=== PATIENT | female | born 1955 | race Caucasian/White ===

== ENCOUNTER 2023-10-17 19:17 | Emergency (ER) | payer OTHER, SELFPAY ==
[2023-10-17 20:05] LABS: % Basophils 0.4 % (0-2); % Eosinophils 2.5 % (0-6); % Immature Granulocytes 0.3 % (0-0.5); % Lymphocytes 25.7 % (20.5-51.1); % Monocytes 7.8 % (1.7-9.3); % Neutrophils 63.3 % (42.2-75.2); Absolute Eosinophils 0.3 10^3/uL (0-0.7); Absolute Lymphocytes 2.6 10^3/uL (1.2-3.4); Absolute Monocytes 0.8 10^3/uL (0.1-0.6); Absolute Neutrophils 6.5 10^3/uL (1.4-6.5); Hematocrit 43.8 % (37.0-47.0); Hemoglobin 14.6 g/dL (12.0-16.0); Mean Corp Hgb Conc. 33.3 g/dL (33.0-37.0); Mean Corpuscular Hgb 30.6 pg (27.0-31.0); Mean Corpuscular Volume 91.8 fL (81.0-99.0); Mean Platelet Volume 9.5 fL (7.4-10.4); Nucleated Red Blood Cells % 0 %; Platelet Count 257 10^3/uL (130-400); Red Blood Cell Count 4.77 10^6/uL (4.20-5.40); Red Cell Dist. Width 13.6 % (11.5-14.5); White Blood Cell Count 10.2 10^3/uL (4.8-10.8)
[2023-10-17 20:16] LABS: Lactic Acid 1.3 mmol/L (0.7-2.0)
[2023-10-17 20:19] LABS: Urine Albumin Negative (Neg - Trace); Urine Bilirubin Negative (Negative); Urine Character Clear (Clear); Urine Color Yellow; Urine Glucose Negative (Negative); Urine Ketone Negative (Negative); Urine Leukocyte Trace (Negative); Urine Nitrite Negative (Negative); Urine Occult Blood Negative (Negative); Urine Specific Gravity 1.015 (<1.030); Urine Urobilinogen Negative (Neg - 1+)
[2023-10-17 20:19] LABS: ALT (SGPT) 29 U/L (0-35); AST (SGOT) 32 U/L (14-36); Albumin 4.6 g/dl (3.5-5.0); Alkaline Phosphatase 133 U/L (38-126); Blood Urea Nitrogen 13 mg/dl (7-17); Calcium 10.8 mg/dl (8.4-10.2); Carbon Dioxide 28 mmol/L (22-30); Chloride 101 mmol/L (98-107); Glucose 95 mg/dl (70-99); Potassium 4.8 mmol/L (3.5-5.1); Sodium 138 mmol/L (135-145); Total Bilirubin 0.7 mg/dl (0.2-1.3); eGFR > 60.00
[2023-10-17 20:28] LABS: Troponin I < 0.012 ng/ml
[2023-10-17 20:29] LABS: Urine White Cell 16-20 /HPF (0-5)
[2023-10-17 20:30] LABS: Urine Red Blood Cell 0-2 /HPF (0-2)
--- NOTE | 2023-10-17 21:06 | ED.GENMED ---
History of Present Illness
General
Chief Complaint: Swelling
Source: patient and spouse
Exam Limitations: none
Time Seen by Provider: 10/17/23 20:35
Travel History
Have you had any contact with someone who has COVID-19?: No
Do you have any symptoms of coronavirus? Fever > 100 degrees, chills, cough, shortness of breath, sore throat, loss of taste or smell, muscle aches, or headache?: No
History of Present Illness
History of Present Illness:
This is a 68 year old female that comes in with c/o right lower leg swelling. states that the patient has a Neurologic problem that is worse then MS and her brain is just deteriorating. State that he noticed a couple days ago that her right
lower leg was swollen and slightly red. Patient Denies any injury. State that she has had chest pain on and off and some SOB. Denies any fever, chills, abd pain, nausea, vomiting, diarrhea, headache, dizziness, urinary burning.
Past History
Past History
ED Past Medical History: GERD, NIDDM and Other (Neurologic problem, Vertigo)
ED Past Surgical History: Orthopedic (ACL repair bilateral knee's)
Patient has exhibited threatening behavior?: No
Social History
Tobacco: Non-smoker
Alcohol: None
Personal:
Living: with family
Employment: Employed
Review of Systems
Review of Systems
All Other Systems: ROS reviewed and negative except as documented in HPI and ROS
Constitutional: Reports no symptoms; Denies fever or chills
EENT: Reports no symptoms
Respiratory: Reports trouble breathing
Cardiac: Reports chest pain
ABD/GI: Reports constipated; Denies abdominal pain, nausea, vomiting or diarrhea
: Reports no symptoms; Denies dysuria, frequency or urgency
Musculoskeletal: Reports edema (Right ankle and lower leg)
Skin: Reports no symptoms
Neurological: Reports no symptoms; Denies dizzy or headache
Psychiatric: Reports no symptoms
Phy Exam
General Physical Exam
General Presentation: no apparent distress
General age: appears stated age
General Skin: warm and dry
General Habitus: elderly and poor hygiene
General Mental: usual mental status
General Hydration: appears well hydrated
ENT Exam
ENT Exam: pharynx normal, neck supple and other (large amount of Cerumen Unable to See the TM)
Eye Exam
Eye Exam: EOMI
Cardiovascular Exam
Cardiovascular Exam: regular rate/rhythm and normal peripheral pulses
Pulmonary Exam
Pulmonary Exam: lungs clear, no respiratory distress, no rales, chest non tender, no crackles, no rhonchi, no wheezing and no cough
Gastrointestinal Exam
Gastrointestinal Exam: normal bowel sounds, non tender, soft, no organomegaly, no pulsatile mass, non distended and other (Obese)
Musculoskeletal Exam
Musculoskeletal Exam: full ROM and edema (of the right ankle and lower leg +2 pitting. )
Skin Exam
Skin Exam: normal color, warm/dry, no petechia and other (Slight redness of the right lower leg noted, Negative for increased warmth)
Psychiatric Exam
Psychiatric Exam: normal mood/affect
Scores
Heart Failure Risk
Heart Failure Risk Score: Not Applicable
Course
Orders/Labs/Results
Orders:
Orders
10/17/23 19:42
Electrocardiogram (*1) Stat
Reason for Study: Chest Pain
Cardiology Consult: Unknown
10/17/23 19:43
EKG- Treatment ONCE
10/17/23 19:58
Complete Blood Count/With Diff Urgent
Comprehensive Metabolic Panel Urgent
Lactic Acid Urgent
Troponin I Urgent
Blood Culture Urgent
MADY Source: Blood/Venous
Specimen Description:
Date Specimen was Collected: 10/17/23
Time Specimen was Collected: 19:43
10/17/23 20:12
Urinalysis Reflex To Culture Urgent
Date Specimen was Collected: 10/17/23
Time Specimen was Collected: 19:43
Urine Microscopic Reflex Cult Urgent
Urine Culture Urgent
MADY Source: U
Specimen Description:
Date Specimen was Collected: 10/17/23
Time Specimen was Collected: 19:43
10/17/23 21:06
Ankle, Right 3 view CR [CR Ankle - Right Min 3 Views *] Urgent
Comment:
Reason For Exam: Swelling
US Periph Venous LOWER Ext RT Urgent
Comment:
Reason For Exam: Swelling pain
10/17/23 21:08
CR Chest - 2 Views Urgent
Comment:
Reason For Exam: SOB
Abnormal Lab Results
10/17/23 10/17/23
19:58 20:12
Absolute Monos (auto) 0.8 H 10^3/uL
(0.1-0.6)
Calcium 10.8 H mg/dl
(8.4-10.2)
Alkaline Phosphatase 133 H U/L
(38-126)
Leukocyte Esterase Rfl Trace A
(Negative)
Urine WBC (Reflex) 16-20 A /HPF
(0-5)
10/17/23 19:58
10/17/23 19:58
calcium slightly elevated. Alk phos elevation. Urine questionable for infection. Troponin <0.012
Vital Signs
Initial and Last Documented VS:
Initial Vital Signs
Temp Pulse Resp Pulse Ox
99.1 F 82 20 98
10/17/23 19:32 10/17/23 19:32 10/17/23 19:32 10/17/23 19:32
Last Documented Vital Signs
Temp Pulse Resp Pulse Ox
99.1 F 82 20 98
10/17/23 19:32 10/17/23 19:32 10/17/23 19:32 10/17/23 19:32
MDM/Problems Addressed
Differential Diagnosis Includes:
Cellulitis, DVT. Ankle fracture
MDM/Problems Addressed:
This is a 68 year old female that comes in with with c/o right ankle and lower leg swelling. states that this started a couple days ago.
Will get Labs, US, and X-ray or ankle.
back into see patient and . Explained that her US is negative for DVT. Her x-ray is negative for any fracture. Explained that this is most likely a cellulitis due to the redness. Will place patient on an antibiotics. Encouraged patient to
elevate the leg when sitting around and use Compression stockings to help reduce the edema. Patient to follow up with the PCP for further evaluation. Patient to return with increased redness, fever, or any other concerns.
Chronic conditions affecting care:
Neurologic disorder
Acute Exacerbation and/or Progression of Chronic Illness:
NA
*Radiology
Radiology exam reviewed: radiology read reviewed (Chest-No acute disease of the chest. Mild cardiomegaly. US- NO evidence of DVT of the right lower extremity. Ankle X-ray=Severe soft tissue swelling. Mild tigiotalar joint osteoarthritis. Minimal
dorsal midfoot osteoarthritis. Calcaneal spur. )
*Pulse Oximetry
Patient hypoxic: no
*EKG
Interpreted by ED Provider?: Yes
Heart Rate: 82
Rate: normal
Rhythm: sinus
Moran: normal axis
Interval: normal interval
QRS Pattern: normal QRS
Ischemia: T-wave inversion (i, aVL, V6)
*Network Pricing Consultant Interpretation
Rate: Network Pricing Consultant- N/A
*Critical Care Note
Total Time (30-74mins, 75-104mins- exclusive of procedures): Not Applicable
ED Attending Note
-
Portions of this chart may have been created with voice recognition software.� Occasional wrong word or��sound alike� substitutions may have occurred due to the inherent limitations of voice recognition software.
Discharge Plan
Departure
Patient Disposition: Home (Routine Discharge)
Date of Disposition: 10/17/23
Time of Disposition: 23:14
Patient with high blood pressure during this ER visit?: Yes
Condition: Good
Covid-19: Not Applicable
Discharge Problem:
Cellulitis of right ankle
Instructions: Cellulitis (Skin Infection), Adult (DC), BLOOD PRESSURE
Prescriptions:
New
cephalexin 500 mg capsule
500 mg PO Q6H 10 Days Qty: 40 0RF
No Action
aspirin 325 MG tablet
650 mg PO PRN PRN (Reason: as directed)
meclizine 25 MG tablet
25 mg PO Q8HPRN PRN (Reason: dizziness) Qty: 15 0RF
Referrals:
Carl Medel MD [Family Provider] - Follow up in 2-3 days
Activity Restrictions/Additional Instructions:
As discussed, your Ultrasound is negative for any blood clots. Your X-ray is negative for any fracture or dislocation. There is a lot of swelling and redness. This is most likely a Cellulitis. You have been given your first antibiotic here and a
prescription has been sent to your Pharmacy. Please take as directed. Follow up with the family doctor in the next 2- 3 days. Please elevate your leg when sitting around. You may also want to try compression stocking to help decrease the welling. IF
YOU HAVE ANY FEVER, INCREASED REDNESS OR SWELLING OR YOU HAVE ANY OTHER CONCERNS PLEASE RETURN TO THE EMERGENCY [facility].
Interventions
Interventions:
*Risk Screen - Suicide Last Done: 10/17/23 19:32
*General Assessment Last Done: 10/17/23 19:32
*Neglect/Abuse Screening Last Done: 10/17/23 19:32
ED- Fall Risk Assessment Last Done: 10/17/23 19:32
*ED COVID-19 Vaccine History Last Done: 10/17/23 19:32
ED- Cardiac Assessment Last Done: 10/17/23 20:58
ED- Pulmonary Assessment Last Done: 10/17/23 20:59
ED-Skin Assessment Last Done: 10/17/23 20:59
Discharge Date and Time
Print Language: KOREAN
[2023-10-17] MEDS: KEFLEX 500 MG PO (23:23)
[2023-10-17 23:30] VITALS: BP 146/83
== END 2023-10-17 23:42 | disposition home or self-care (01) ==
LOC: EMR 19:17
PROVIDERS: Emergency Medicine; EMERGENCY PHYSICIAN Emergency Medicine; FAMILY PHYSICIAN Family Medicine
DX: L03.115 Cellulitis of right lower limb (principal); R03.0 Elevated blood-pressure reading, without diagnosis of hypertension; R29.818 Other symptoms and signs involving the nervous system
CPT/HCPCS: 99285; 71046; 73610; 80053; 81003; 81015; 83605; 84484; 85025; 87040; 87077; 87086; 93005; 93971